=== PATIENT | female | born 1940 | race Caucasian/White ===

== ENCOUNTER 2019-11-01 20:54 | Inpatient (IN) ==
[2019-11-01] MEDS ORDERED: SODIUM CHLORIDE 0.9% 1,000 ML IV STA ×2 (21:25→23:44)
[2019-11-01] MEDS ORDERED: ONDANSETRON 4 MG/2 ML VIAL IV STA (21:36)
[2019-11-01] MEDS ORDERED: NOREPINEPHRINE 8 MG in SODIUM CHLORIDE 0.9% 242 ML IV PRN (21:37)
[2019-11-01 21:54] LABS: Apearance,Urine CLEAR (Clear); Bilirubin,Urine Negative (Negative); Blood, Urine Negative (Negative); Glucose,Urine (UA) Negative (Negative); Ketones,Urine Negative (Negative); Nitrite,Urine Negative (Negative); Protein,Urine Negative; Squamous Epithelial Cell,Urine Occasional /HPF (0-10); Urine Color Yellow (Yellow); Urine Specific Gravity 1.009 (1.001-1.035); Urine Urobilinogen < 2.0 EU/DL (0.2-1.0); WBC,Urine <1 /HPF (0-6)
[2019-11-01 22:02] LABS: Barbiturates Screen,Urine Negative (Negative); Benzodiazepines Screen,Urine Negative (Negative); Cannabinoid Screen,Urine Negative (Negative); Opiate Screen,Urine Positive (Negative); Phencyclidine Screen,Urine Negative (Negative)
[2019-11-01 22:27] LABS: Basophils % 0.2 % (0.0-0.8); Eosinophils # 0.1 10*3/uL (0.0-0.87); Hematocrit 33.5 VOL% (35.7-47.0); Hemoglobin 10.9 GM/DL (12.0-16.0); Immature Granulocytes Absolute 0.13 #; Lymphocytes # 1.1 10*3/uL (1.4-4.0); Lymphocytes % 8.4 % (21.3-54.2); Mean Corpuscular HGB Conc 32.5 GM/DL (32-36); Mean Corpuscular Volume 99.1 FL (87-102); Monocytes % 6.8 % (1.7-12.7); Neutrophils % 82.6 % (38.7-73.9); Platelet Count 213 T/CUMM (130-400); Red Blood Count 3.38 MC/CUMM (3.8-5.5); Red Cell Distribution Width 13.6 % (9.3-17.3); White Blood Count 12.6 T/CUMM (4-12)
[2019-11-01 22:48] LABS: PT Patient Result 67.3 SECS (9.8-11.9)
[2019-11-01 22:58] LABS: Alanine Aminotransferase 14 U/L (13-56); Albumin 3.2 G/DL (3.4-5.0); Alkaline Phosphatase 67 U/L (45-117); Aspartate Amino Transferase 16 U/L (0-37); Blood Urea Nitrogen 43 MG/DL (7-18); Calcium 8.2 MG/DL (8.5-10.1); Estimated Glom Filtration Rate 22 ML/MIN; Ferritin 44.2 ng/ml (8-252); Glucose 130 MG/DL (74-106); Osmolality,Calculated 272.8 MOS/KG (273-304); Thyroid Stimulating Hormone 0.841 uIU/ml (0.358-3.74); Total Protein 6.7 G/DL (6.4-8.3); Troponin I < 0.015 NG/ML (0.00-0.045)
[2019-11-01] MEDS ORDERED: NOREPINEPHRINE 4 MG/4 ML VIAL IV ONE ×2 (23:49→23:50)
[2019-11-02] MEDS ORDERED: ONDANSETRON 4 MG/2 ML VIAL IV PRN (00:08)
[2019-11-02] MEDS ORDERED: ALBUTEROL 2.5 MG/3 ML NEB RESP TX PRN (00:08)
[2019-11-02] MEDS ORDERED: PROMETHAZINE 25 MG/1 ML VIAL IM PRN (00:08)
[2019-11-02] MEDS: LACTATED RINGERS 1,000 ML IV SCH ×3 (01:23→22:30)
[2019-11-02 04:17] LABS: Basophils % 0.4 % (0.0-0.8); Eosinophils # 0.3 10*3/uL (0.0-0.87); Eosinophils % 2.5 % (0.00-10.9); Hematocrit 34.7 VOL% (35.7-47.0); Hemoglobin 11.1 GM/DL (12.0-16.0); Immature Granulocytes Absolute 0.11 #; Lymphocytes # 1.3 10*3/uL (1.4-4.0); Lymphocytes % 12.6 % (21.3-54.2); Mean Platelet Volume 10.1 FL (9.6-12.0); Monocytes % 8.6 % (1.7-12.7); Neutrophils % 74.9 % (38.7-73.9); Platelet Count 196 T/CUMM (130-400); Red Blood Count 3.47 MC/CUMM (3.8-5.5); Red Cell Distribution Width 13.5 % (9.3-17.3); White Blood Count 10.5 T/CUMM (4-12)
[2019-11-02 04:51] LABS: Albumin 2.8 G/DL (3.4-5.0); Bilirubin,Total 1.1 MG/DL (0.2-1.0); Calcium 8.6 MG/DL (8.5-10.1); Osmolality,Calculated 273.4 MOS/KG (273-304)
[2019-11-02 08:04] LABS: INR 3.8; PT Patient Result 38.3 SECS (9.8-11.9)
[2019-11-02] MEDS ORDERED: LACTATED RINGERS 1,000 ML IV ONE (08:46)
[2019-11-02] MEDS: levETIRAcetam 500 MG TABLET PO SCH (20:54)
[2019-11-02] MEDS: FLECAINIDE 50 MG TABLET PO SCH (20:54)
[2019-11-02] MEDS ORDERED: SERTRALINE 50 MG TABLET PO SCH (21:00)
[2019-11-02] MEDS ORDERED: SIMVASTATIN 80 MG TABLET PO SCH (21:00)
[2019-11-03] MEDS ORDERED: LEVOTHYROXINE 88 MCG TABLET PO SCH (06:30)
[2019-11-03 06:31] LABS: INR 2.3; PT Patient Result 23.3 SECS (9.8-11.9)
[2019-11-03] MEDS: FLECAINIDE 50 MG TABLET PO SCH (08:09)
[2019-11-03] MEDS: levETIRAcetam 500 MG TABLET PO SCH (08:09)
[2019-11-03] MEDS: LACTATED RINGERS 1,000 ML IV SCH (08:11)
[2019-11-03 08:39] LABS: Calcium 9.1 MG/DL (8.5-10.1); Osmolality,Calculated 275.7 MOS/KG (273-304)
[2019-11-03] MEDS ORDERED: PANTOPRAZOLE 40 MG TABLET PO SCH (09:00)
[2019-11-03 11:31] VITALS: BP 147/89
[2019-11-03] MEDS ORDERED: WARFARIN 2.5 MG TABLET PO SCH (18:00)
[2019-11-04] MEDS ORDERED: WARFARIN 5 MG TABLET PO SCH (18:00)
== END 2019-11-03 15:57 | DRG 683 ==
LOC: EDUNIT# → EDBD → N.ED 20:54 → N.EDINP 11-02 00:19 → SUATTDRO 11-02 00:19 → N.ICU 11-02 00:46 → N.4E 11-02 17:27
PROVIDERS: ADMIT Internal Medicine; ATTEND Internal Medicine

== ENCOUNTER 2020-06-27 05:38 | Inpatient (IN) ==
[2020-06-27 07:52] LABS: ABG Base Excess 11.1 MMOL/L (-2.5-2.5); ABG HCO3 34.7 MMOL/L (20-26); ABG Oxygen Saturation 90.5 % (95-100); ABG PH 7.315 (7.35-7.45); ABG PO2 71.3 MM HG (80-95); ABG TCO2 37.3 MMOL/L (23-27); Allen Test Positive
[2020-06-27 07:55] LABS: ABG PCO2 78.2 MM HG (35-48)
[2020-06-27] MEDS ORDERED: FUROSEMIDE 20 MG/2 ML VIAL IV ONE (08:04)
[2020-06-27] MEDS ORDERED: ALUMINUM/MAGNES/SIMETH MAX STR 30 ML UDCUP PO PRN (08:05)
[2020-06-27] MEDS ORDERED: ZALEPLON 5 MG CAPSULE PO PRN (08:05)
[2020-06-27] MEDS ORDERED: ACETAMINOPHEN 325 MG TABLET PO PRN (08:05)
[2020-06-27] MEDS ORDERED: MAGNESIUM SULF RIDER 4 GM in PREMIX 1 EACH IV PRN (08:05)
[2020-06-27] MEDS ORDERED: MAGNESIUM SULF RIDER 2 GM in PREMIX 1 EACH IV PRN (08:05)
[2020-06-27] MEDS ORDERED: ONDANSETRON 4 MG/2 ML VIAL IV PRN (08:05)
[2020-06-27] MEDS ORDERED: BISACODYL 5 MG TABLET PO PRN (08:05)
[2020-06-27] MEDS ORDERED: FUROSEMIDE 40 MG/4 ML VIAL ONE (08:10)
[2020-06-27] MEDS ORDERED: FUROSEMIDE 40 MG/4 ML VIAL IV ONE ×2 (08:30→18:41)
[2020-06-27] MEDS ORDERED: ENOXAPARIN 40 MG/0.4 ML SYRINGE SUBCUT SCH (08:30)
[2020-06-27] MEDS: SODIUM CHLORIDE 0.9% 1,000 ML IV SCH (08:47)
[2020-06-27 08:49] LABS: Bilirubin,Urine Negative (Negative); Blood, Urine Negative (Negative); Glucose,Urine (UA) Negative (Negative); Hyaline Casts,Urine 1 /LPF (0-3); Ketones,Urine Negative (Negative); Mucus,Urine Occasional /LPF (Occasional); Nitrite,Urine Negative (Negative); Protein,Urine 100 MG/DL; RBC,Urine 3 /HPF (0-4); Urine Appearance CLEAR (Clear); Urine Color Yellow (Yellow); Urine Specific Gravity 1.019 (1.001-1.035); Urine Urobilinogen < 2.0 EU/DL (0.2-1.0); WBC,Urine 1 /HPF (0-6)
[2020-06-27] MEDS ORDERED: PANTOPRAZOLE 40 MG TABLET PO SCH (09:00)
[2020-06-27 09:51] LABS: Basophils % 0.3 % (0.0-0.8); Eosinophils % 0.3 % (0.00-10.9); Hematocrit 29.6 VOL% (35.7-47.0); Hemoglobin 8.7 GM/DL (12.0-16.0); Immature Granulocytes % 0.5 %; Immature Granulocytes Absolute 0.03 #; Lymphocytes # 0.5 10*3/uL (1.4-4.0); Lymphocytes % 7.5 % (21.3-54.2); Mean Corpuscular HGB Conc 29.4 GM/DL (32-36); Mean Corpuscular Volume 89.7 FL (87-102); Mean Platelet Volume 9.3 FL (9.6-12.0); Monocytes % 7.4 % (1.7-12.7); Platelet Count 233 T/CUMM (130-400); Red Cell Distribution Width 17.9 % (9.3-17.3)
[2020-06-27 10:08] LABS: INR 4.8; PT Patient Result 47.4 SECS (9.8-11.9)
[2020-06-27 10:14] LABS: Alanine Aminotransferase 19 U/L (13-56); Albumin 3.4 G/DL (3.4-5.0); Alkaline Phosphatase 89 U/L (45-117); Aspartate Amino Transferase 10 U/L (0-37); Bilirubin,Total < 0.39 MG/DL (0.2-1.0); Blood Urea Nitrogen 23 MG/DL (7-18); Estimated Glom Filtration Rate 92 ML/MIN; Glucose 111 MG/DL (74-106); Total Protein 6.7 G/DL (5.0-7.5)
[2020-06-27 10:18] LABS: Potassium 4.7 MMOL/L (3.5-5.1)
[2020-06-27 10:22] LABS: Carbon Dioxide 39 MMOL/L (21-32)
[2020-06-27 10:27] LABS: Osmolality,Calculated 262.9 MOS/KG (273-304); Sodium 129 MMOL/L (136-145)
[2020-06-27] MEDS ORDERED: COLCHICINE 0.6 MG CAPSULE PO PRN (14:47)
[2020-06-27] MEDS: amLODIPine 5 MG TABLET PO SCH (15:07)
[2020-06-27] MEDS: LEVOTHYROXINE 88 MCG TABLET PO SCH (15:07)
[2020-06-27] MEDS: ASCORBIC ACID 500 MG TABLET PO SCH (15:07)
[2020-06-27] MEDS: FLECAINIDE 100 MG TABLET PO SCH ×2 (15:07→20:32)
[2020-06-27] MEDS: PANTOPRAZOLE 40 MG TABLET PO SCH (15:07)
[2020-06-27] MEDS ORDERED: WARFARIN 5 MG TABLET PO SCH (18:00)
[2020-06-27] MEDS: ALBUTEROL/IPRATROPIUM 3 ML NEB RESP TX SCH (19:05)
[2020-06-27] MEDS: levETIRAcetam 500 MG TABLET PO SCH (20:32)
[2020-06-27] MEDS: ATORVASTATIN 20 MG TABLET PO SCH (20:32)
[2020-06-27] MEDS: OXcarbazepine 300 MG TABLET PO SCH (20:33)
[2020-06-27] MEDS: traZODone 50 MG TABLET PO SCH (20:33)
[2020-06-28] MEDS: ALBUTEROL/IPRATROPIUM 3 ML NEB RESP TX SCH ×4 (00:53→19:33)
[2020-06-28 06:57] LABS: Basophils % 0.4 % (0.0-0.8); Eosinophils # 0.1 10*3/uL (0.0-0.87); Eosinophils % 1.7 % (0.00-10.9); Hematocrit 27.9 VOL% (35.7-47.0); Hemoglobin 8.3 GM/DL (12.0-16.0); Immature Granulocytes % 0.4 %; Immature Granulocytes Absolute 0.02 #; Lymphocytes # 0.6 10*3/uL (1.4-4.0); Lymphocytes % 11.8 % (21.3-54.2); Mean Corpuscular HGB Conc 29.7 GM/DL (32-36); Mean Corpuscular Volume 86.4 FL (87-102); Monocytes % 11.8 % (1.7-12.7); Neutrophils % 73.9 % (38.7-73.9); Platelet Count 235 T/CUMM (130-400); Red Blood Count 3.23 MC/CUMM (3.8-5.5); Red Cell Distribution Width 17.9 % (9.3-17.3); White Blood Count 4.7 T/CUMM (4-12)
[2020-06-28 07:04] LABS: INR 3.6; PT Patient Result 36.2 SECS (9.8-11.9)
[2020-06-28 07:29] LABS: Calcium 8.6 MG/DL (8.5-10.1); Osmolality,Calculated 267.4 MOS/KG (273-304); Potassium 4.1 MMOL/L (3.5-5.1); Risk Ratio 2.11; VLDL CHOLESTEROL 14.4 MG/DL
[2020-06-28] MEDS: amLODIPine 5 MG TABLET PO SCH (11:33)
[2020-06-28] MEDS: OXcarbazepine 300 MG TABLET PO SCH ×2 (11:35→20:17)
[2020-06-28] MEDS: levETIRAcetam 500 MG TABLET PO SCH ×2 (11:37→20:17)
[2020-06-28] MEDS: PANTOPRAZOLE 40 MG TABLET PO SCH (11:37)
[2020-06-28] MEDS: LEVOTHYROXINE 88 MCG TABLET PO SCH (11:37)
[2020-06-28] MEDS: FLECAINIDE 100 MG TABLET PO SCH ×2 (11:38→20:16)
[2020-06-28] MEDS: CHOLECALCIFEROL 1,000 UNIT TABLET PO SCH (11:39)
[2020-06-28] MEDS: ZINC GLUCONATE 50 MG TABLET PO SCH (11:39)
[2020-06-28] MEDS: lisinopriL 20 MG TABLET PO SCH (11:40)
[2020-06-28] MEDS: MAGNESIUM OXIDE 400 MG TABLET PO SCH (11:41)
[2020-06-28] MEDS: ASCORBIC ACID 500 MG TABLET PO SCH ×2 (11:42→20:16)
[2020-06-28] MEDS: FUROSEMIDE 40 MG TABLET PO SCH (11:42)
[2020-06-28] MEDS: SODIUM CHLORIDE 0.9% 1,000 ML IV SCH (15:15)
[2020-06-28] MEDS: traZODone 50 MG TABLET PO SCH (20:17)
[2020-06-28] MEDS: ATORVASTATIN 20 MG TABLET PO SCH (20:17)
[2020-06-29] MEDS: ALBUTEROL/IPRATROPIUM 3 ML NEB RESP TX SCH ×3 (00:35→12:50)
[2020-06-29 05:16] LABS: Basophils % 0.5 % (0.0-0.8); Eosinophils # 0.1 10*3/uL (0.0-0.87); Hematocrit 27.2 VOL% (35.7-47.0); Hemoglobin 8.3 GM/DL (12.0-16.0); Immature Granulocytes % 0.7 %; Immature Granulocytes Absolute 0.04 #; Lymphocytes # 0.6 10*3/uL (1.4-4.0); Lymphocytes % 9.4 % (21.3-54.2); Mean Corpuscular HGB Conc 30.5 GM/DL (32-36); Mean Platelet Volume 9.5 FL (9.6-12.0); Monocytes % 9.2 % (1.7-12.7); Neutrophils % 78.2 % (38.7-73.9); Platelet Count 209 T/CUMM (130-400); Red Cell Distribution Width 17.5 % (9.3-17.3); White Blood Count 6.1 T/CUMM (4-12)
[2020-06-29 05:25] LABS: INR 2.2; PT Patient Result 22.9 SECS (9.8-11.9)
[2020-06-29 05:44] LABS: Calcium 8.6 MG/DL (8.5-10.1); Osmolality,Calculated 262.7 MOS/KG (273-304); Potassium 3.8 MMOL/L (3.5-5.1)
[2020-06-29] MEDS: lisinopriL 20 MG TABLET PO SCH (09:07)
[2020-06-29] MEDS: levETIRAcetam 500 MG TABLET PO SCH ×2 (09:08→20:44)
[2020-06-29] MEDS: FLECAINIDE 100 MG TABLET PO SCH ×2 (09:08→20:45)
[2020-06-29] MEDS: LEVOTHYROXINE 88 MCG TABLET PO SCH (09:08)
[2020-06-29] MEDS: CHOLECALCIFEROL 1,000 UNIT TABLET PO SCH (09:08)
[2020-06-29] MEDS: PANTOPRAZOLE 40 MG TABLET PO SCH (09:09)
[2020-06-29] MEDS: amLODIPine 5 MG TABLET PO SCH (09:09)
[2020-06-29] MEDS: ZINC GLUCONATE 50 MG TABLET PO SCH (09:09)
[2020-06-29] MEDS: MAGNESIUM OXIDE 400 MG TABLET PO SCH (09:10)
[2020-06-29] MEDS: OXcarbazepine 300 MG TABLET PO SCH ×2 (09:10→20:45)
[2020-06-29] MEDS: ASCORBIC ACID 500 MG TABLET PO SCH ×2 (09:11→20:45)
[2020-06-29] MEDS: FUROSEMIDE 40 MG TABLET PO SCH (09:11)
[2020-06-29] MEDS: SODIUM CHLORIDE 0.9% 1,000 ML IV SCH (17:12)
[2020-06-29] MEDS: BUDESONIDE 0.5 MG/2 ML NEB RESP TX SCH (19:17)
[2020-06-29] MEDS: IPRATROPIUM 500 MCG/2.5 ML NEB RESP TX SCH (19:17)
[2020-06-29] MEDS: traZODone 50 MG TABLET PO SCH (20:44)
[2020-06-29] MEDS: ATORVASTATIN 20 MG TABLET PO SCH (20:45)
[2020-06-30] MEDS: IPRATROPIUM 500 MCG/2.5 ML NEB RESP TX SCH ×4 (00:13→19:02)
[2020-06-30 03:57] LABS: ABG Base Excess 14.8 MMOL/L (-2.5-2.5); ABG HCO3 38.6 MMOL/L (20-26); ABG Oxygen Saturation 93.8 % (95-100); ABG PCO2 59.9 MM HG (35-48); ABG PH 7.445 (7.35-7.45); ABG TCO2 38.3 MMOL/L (23-27); Allen Test Positive
[2020-06-30 05:27] LABS: Basophils % 0.2 % (0.0-0.8); Eosinophils # 0.1 10*3/uL (0.0-0.87); Eosinophils % 2.3 % (0.00-10.9); Hematocrit 26.2 VOL% (35.7-47.0); Hemoglobin 8.1 GM/DL (12.0-16.0); Immature Granulocytes % 0.7 %; Immature Granulocytes Absolute 0.04 #; Lymphocytes # 0.6 10*3/uL (1.4-4.0); Lymphocytes % 9.5 % (21.3-54.2); Mean Corpuscular HGB Conc 30.9 GM/DL (32-36); Mean Corpuscular Volume 83.7 FL (87-102); Mean Platelet Volume 9.7 FL (9.6-12.0); Monocytes % 10.9 % (1.7-12.7); Neutrophils % 76.4 % (38.7-73.9); Platelet Count 203 T/CUMM (130-400); Red Blood Count 3.13 MC/CUMM (3.8-5.5); Red Cell Distribution Width 17.8 % (9.3-17.3); White Blood Count 5.8 T/CUMM (4-12)
[2020-06-30 05:31] LABS: INR 1.4; PT Patient Result 14.7 SECS (9.8-11.9)
[2020-06-30 05:38] LABS: Calcium 8.6 MG/DL (8.5-10.1); Osmolality,Calculated 257.1 MOS/KG (273-304); Potassium 3.4 MMOL/L (3.5-5.1)
[2020-06-30] MEDS: BUDESONIDE 0.5 MG/2 ML NEB RESP TX SCH ×2 (07:05→19:02)
[2020-06-30] MEDS: lisinopriL 20 MG TABLET PO SCH (09:19)
[2020-06-30] MEDS: PANTOPRAZOLE 40 MG TABLET PO SCH (09:19)
[2020-06-30] MEDS: LEVOTHYROXINE 88 MCG TABLET PO SCH (09:20)
[2020-06-30] MEDS: FLECAINIDE 100 MG TABLET PO SCH ×2 (09:20→20:39)
[2020-06-30] MEDS: MAGNESIUM OXIDE 400 MG TABLET PO SCH (09:20)
[2020-06-30] MEDS: ZINC GLUCONATE 50 MG TABLET PO SCH (09:20)
[2020-06-30] MEDS: ASCORBIC ACID 500 MG TABLET PO SCH ×2 (09:20→20:40)
[2020-06-30] MEDS: FUROSEMIDE 40 MG TABLET PO SCH (09:20)
[2020-06-30] MEDS: levETIRAcetam 500 MG TABLET PO SCH ×2 (09:21→20:42)
[2020-06-30] MEDS: OXcarbazepine 300 MG TABLET PO SCH ×2 (09:21→20:40)
[2020-06-30] MEDS: amLODIPine 5 MG TABLET PO SCH (09:22)
[2020-06-30] MEDS: CHOLECALCIFEROL 1,000 UNIT TABLET PO SCH (09:22)
[2020-06-30] MEDS: SODIUM CHLORIDE 0.9% 1,000 ML IV SCH (09:32)
[2020-06-30] MEDS: POTASSIUM CHLORIDE 20 MEQ TABLET PO PRN ×3 (09:44→13:43)
[2020-06-30] MEDS: traZODone 50 MG TABLET PO SCH (20:40)
[2020-06-30] MEDS: ATORVASTATIN 20 MG TABLET PO SCH (20:40)
[2020-07-01] MEDS: IPRATROPIUM 500 MCG/2.5 ML NEB RESP TX SCH ×4 (00:47→18:21)
[2020-07-01 06:32] LABS: Basophils % 0.4 % (0.0-0.8); Eosinophils # 0.2 10*3/uL (0.0-0.87); Eosinophils % 4.8 % (0.00-10.9); Hematocrit 26.7 VOL% (35.7-47.0); Hemoglobin 8.1 GM/DL (12.0-16.0); Immature Granulocytes % 0.7 %; Immature Granulocytes Absolute 0.03 #; Lymphocytes # 0.5 10*3/uL (1.4-4.0); Lymphocytes % 11.4 % (21.3-54.2); Mean Corpuscular HGB Conc 30.3 GM/DL (32-36); Mean Corpuscular Volume 86.7 FL (87-102); Mean Platelet Volume 10.3 FL (9.6-12.0); Neutrophils % 71.7 % (38.7-73.9); Platelet Count 212 T/CUMM (130-400); Red Blood Count 3.08 MC/CUMM (3.8-5.5); Red Cell Distribution Width 18.4 % (9.3-17.3); White Blood Count 4.6 T/CUMM (4-12)
[2020-07-01 06:41] LABS: INR 1.1; PT Patient Result 11.4 SECS (9.8-11.9)
[2020-07-01 06:52] LABS: Calcium 8.9 MG/DL (8.5-10.1); Osmolality,Calculated 262.7 MOS/KG (273-304); Potassium 3.7 MMOL/L (3.5-5.1)
[2020-07-01] MEDS: SODIUM CHLORIDE 0.9% 1,000 ML IV SCH (07:00)
[2020-07-01] MEDS ORDERED: LIDOCAINE 2% 5 ML VIAL ONE (07:25)
[2020-07-01] MEDS ORDERED: propofoL 200 MG/20 ML VIAL IV ONE (07:25)
[2020-07-01] MEDS ORDERED: ENOXAPARIN 40 MG/0.4 ML SYRINGE SUBCUT ONE (07:30)
[2020-07-01] MEDS: amLODIPine 5 MG TABLET PO SCH (08:43)
[2020-07-01] MEDS: FUROSEMIDE 40 MG TABLET PO SCH (08:43)
[2020-07-01] MEDS: lisinopriL 20 MG TABLET PO SCH (08:43)
[2020-07-01] MEDS: levETIRAcetam 500 MG TABLET PO SCH ×2 (09:47→20:32)
[2020-07-01] MEDS: LEVOTHYROXINE 88 MCG TABLET PO SCH (09:47)
[2020-07-01] MEDS: CHOLECALCIFEROL 1,000 UNIT TABLET PO SCH (09:48)
[2020-07-01] MEDS: MAGNESIUM OXIDE 400 MG TABLET PO SCH (09:48)
[2020-07-01] MEDS: ZINC GLUCONATE 50 MG TABLET PO SCH (09:48)
[2020-07-01] MEDS: FLECAINIDE 100 MG TABLET PO SCH ×3 (09:49→23:18)
[2020-07-01] MEDS: OXcarbazepine 300 MG TABLET PO SCH ×2 (09:49→20:31)
[2020-07-01] MEDS: ASCORBIC ACID 500 MG TABLET PO SCH ×2 (09:49→20:32)
[2020-07-01] MEDS: PANTOPRAZOLE 40 MG TABLET PO SCH (09:49)
[2020-07-01] MEDS: BUDESONIDE 0.5 MG/2 ML NEB RESP TX SCH ×2 (09:57→18:21)
[2020-07-01] MEDS ORDERED: VANCOMYCIN 500 MG VIAL IRRIG ONE (13:46)
[2020-07-01] MEDS ORDERED: VANCOMYCIN INJ 1,000 MG in SODIUM CHLORIDE 0.9% 250 ML IV ONE (13:46)
[2020-07-01] MEDS ORDERED: WARFARIN 7.5 MG TABLET PO SCH (18:00)
[2020-07-01] MEDS: ATORVASTATIN 20 MG TABLET PO SCH (20:31)
[2020-07-01] MEDS: traZODone 50 MG TABLET PO SCH (20:32)
[2020-07-02] MEDS: IPRATROPIUM 500 MCG/2.5 ML NEB RESP TX SCH ×4 (00:55→18:41)
[2020-07-02] MEDS ORDERED: VANCOMYCIN INJ 1,000 MG in SODIUM CHLORIDE 0.9% 250 ML IV ONE (06:00)
[2020-07-02 06:18] LABS: Basophils % 0.1 % (0.0-0.8); Eosinophils # 0.2 10*3/uL (0.0-0.87); Eosinophils % 2.7 % (0.00-10.9); Hematocrit 25.8 VOL% (35.7-47.0); Hemoglobin 7.9 GM/DL (12.0-16.0); Immature Granulocytes % 0.7 %; Immature Granulocytes Absolute 0.05 #; Lymphocytes # 0.7 10*3/uL (1.4-4.0); Lymphocytes % 9.7 % (21.3-54.2); Mean Corpuscular HGB Conc 30.6 GM/DL (32-36); Mean Corpuscular Volume 84.6 FL (87-102); Mean Platelet Volume 10.2 FL (9.6-12.0); Monocytes % 9.1 % (1.7-12.7); Neutrophils % 77.7 % (38.7-73.9); Platelet Count 209 T/CUMM (130-400); Red Blood Count 3.05 MC/CUMM (3.8-5.5); Red Cell Distribution Width 18.1 % (9.3-17.3); White Blood Count 6.7 T/CUMM (4-12)
[2020-07-02 06:25] LABS: PT Patient Result 10.6 SECS (9.8-11.9)
[2020-07-02 06:42] LABS: Calcium 8.9 MG/DL (8.5-10.1); Osmolality,Calculated 260.1 MOS/KG (273-304); Potassium 4.1 MMOL/L (3.5-5.1)
[2020-07-02] MEDS ORDERED: DIAZEPAM 5 MG TABLET PO ONE (07:00)
[2020-07-02] MEDS ORDERED: diphenhydrAMINE CAP 50 MG CAPSULE PO ONE (07:00)
[2020-07-02] MEDS ORDERED: VANCOMYCIN 500 MG VIAL ONE ×3 (07:18→08:59)
[2020-07-02] MEDS ORDERED: LIDOCAINE 1% 20 ML VIAL ONE ×2 (07:39→09:15)
[2020-07-02] MEDS ORDERED: MIDAZOLAM 2 MG/2 ML VIAL ONE (07:54)
[2020-07-02] MEDS ORDERED: fentaNYL 100 MCG/2 ML VIAL ONE (07:55)
[2020-07-02] MEDS: BUDESONIDE 0.5 MG/2 ML NEB RESP TX SCH ×2 (08:05→18:41)
[2020-07-02] MEDS: SODIUM CHLORIDE 0.9% 1,000 ML IV SCH (08:09)
[2020-07-02] MEDS ORDERED: TISSUE ADHESIVE 1 EACH APPLICATOR TOP ONE ×2 (08:16→08:59)
[2020-07-02] MEDS ORDERED: PROMETHAZINE 25 MG/1 ML VIAL ONE (09:12)
[2020-07-02] MEDS: FLECAINIDE 100 MG TABLET PO SCH ×2 (10:58→20:13)
[2020-07-02 11:24] LABS: ABG Base Excess 8.9 MMOL/L (-2.5-2.5); ABG HCO3 32.6 MMOL/L (20-26); ABG Oxygen Saturation 95.4 % (95-100); ABG PCO2 66.8 MM HG (35-48); ABG PH 7.345 (7.35-7.45); ABG PO2 88.2 MM HG (80-95)
[2020-07-02] MEDS ORDERED: SODIUM CHLORIDE 0.9% 1,000 ML IV PRN (14:38)
[2020-07-02] MEDS: lisinopriL 20 MG TABLET PO SCH (15:20)
[2020-07-02] MEDS: FUROSEMIDE 40 MG TABLET PO SCH (15:20)
[2020-07-02] MEDS: MAGNESIUM OXIDE 400 MG TABLET PO SCH (15:20)
[2020-07-02] MEDS: amLODIPine 5 MG TABLET PO SCH (15:20)
[2020-07-02] MEDS: LEVOTHYROXINE 88 MCG TABLET PO SCH (15:21)
[2020-07-02] MEDS: OXcarbazepine 300 MG TABLET PO SCH ×2 (15:21→18:29)
[2020-07-02] MEDS: levETIRAcetam 500 MG TABLET PO SCH ×2 (15:21→18:28)
[2020-07-02] MEDS: ASCORBIC ACID 500 MG TABLET PO SCH ×2 (15:21→20:13)
[2020-07-02] MEDS: CHOLECALCIFEROL 1,000 UNIT TABLET PO SCH (15:21)
[2020-07-02] MEDS: PANTOPRAZOLE 40 MG TABLET PO SCH ×2 (15:21→18:29)
[2020-07-02] MEDS: ZINC GLUCONATE 50 MG TABLET PO SCH (15:21)
[2020-07-02] MEDS: WARFARIN 5 MG TABLET PO SCH (18:29)
[2020-07-02] MEDS: traZODone 50 MG TABLET PO SCH (20:13)
[2020-07-02] MEDS: ATORVASTATIN 20 MG TABLET PO SCH (20:13)
[2020-07-03] MEDS: IPRATROPIUM 500 MCG/2.5 ML NEB RESP TX SCH ×4 (00:52→19:25)
[2020-07-03] MEDS: levETIRAcetam 500 MG TABLET PO SCH ×3 (01:10→20:47)
[2020-07-03] MEDS: OXcarbazepine 300 MG TABLET PO SCH ×3 (01:10→20:52)
[2020-07-03 05:56] LABS: Basophils % 0.5 % (0.0-0.8); Eosinophils # 0.2 10*3/uL (0.0-0.87); Eosinophils % 4.2 % (0.00-10.9); Hematocrit 34.6 VOL% (35.7-47.0); Hemoglobin 10.2 GM/DL (12.0-16.0); Immature Granulocytes % 0.7 %; Immature Granulocytes Absolute 0.04 #; Lymphocytes # 0.5 10*3/uL (1.4-4.0); Lymphocytes % 8.2 % (21.3-54.2); Mean Corpuscular HGB Conc 29.5 GM/DL (32-36); Mean Platelet Volume 9.6 FL (9.6-12.0); Monocytes % 9.6 % (1.7-12.7); Neutrophils % 76.8 % (38.7-73.9); Platelet Count 168 T/CUMM (130-400); Red Blood Count 3.93 MC/CUMM (3.8-5.5); Red Cell Distribution Width 17.3 % (9.3-17.3); White Blood Count 5.7 T/CUMM (4-12)
[2020-07-03 06:10] LABS: INR 1.1; PT Patient Result 11.4 SECS (9.8-11.9)
[2020-07-03 06:39] LABS: Albumin 2.8 G/DL (3.4-5.0); Bilirubin,Total 0.4 MG/DL (0.2-1.0); Osmolality,Calculated 258.8 MOS/KG (273-304); Potassium 4.4 MMOL/L (3.5-5.1); Total Protein 6.3 G/DL (5.0-7.5)
[2020-07-03 06:56] LABS: Band Neutrophils 1 % (0-10); Eosinophils 2 % (0-10); Lymphocytes 9 % (20-55); Segmented Neutrophils 83 % (50-85); Total Cells Counted 100
[2020-07-03 06:57] LABS: Hypochromasia 1+; Microcytosis 1+; Ovalocytes Few; Platelet Estimate Adequate
[2020-07-03] MEDS: BUDESONIDE 0.5 MG/2 ML NEB RESP TX SCH ×2 (07:10→19:25)
[2020-07-03] MEDS: PANTOPRAZOLE 40 MG TABLET PO SCH (09:11)
[2020-07-03] MEDS: lisinopriL 20 MG TABLET PO SCH (09:12)
[2020-07-03] MEDS: MAGNESIUM OXIDE 400 MG TABLET PO SCH (09:13)
[2020-07-03] MEDS: amLODIPine 5 MG TABLET PO SCH (09:13)
[2020-07-03] MEDS: FLECAINIDE 100 MG TABLET PO SCH ×2 (09:13→20:46)
[2020-07-03] MEDS: ZINC GLUCONATE 50 MG TABLET PO SCH (09:13)
[2020-07-03] MEDS: CHOLECALCIFEROL 1,000 UNIT TABLET PO SCH (09:13)
[2020-07-03] MEDS: LEVOTHYROXINE 88 MCG TABLET PO SCH (09:13)
[2020-07-03] MEDS: FUROSEMIDE 40 MG TABLET PO SCH (09:13)
[2020-07-03] MEDS: ASCORBIC ACID 500 MG TABLET PO SCH ×2 (09:13→20:47)
[2020-07-03] MEDS: POTASSIUM CHLORIDE 10 MEQ TABLET PO PRN (09:14)
[2020-07-03] MEDS: HEPARIN DRIP 25,000 UNITS/500 ML PREMIX IV SCH (15:47)
[2020-07-03] MEDS: traZODone 50 MG TABLET PO SCH (20:47)
[2020-07-03] MEDS: ATORVASTATIN 20 MG TABLET PO SCH (20:52)
[2020-07-04] MEDS: IPRATROPIUM 500 MCG/2.5 ML NEB RESP TX SCH ×4 (00:57→20:05)
[2020-07-04] MEDS ORDERED: HEPARIN 5,000 UNIT/1 ML VIAL IV ONE ×2 (02:02→18:10)
[2020-07-04] MEDS: BUDESONIDE 0.5 MG/2 ML NEB RESP TX SCH ×2 (07:03→20:05)
[2020-07-04] MEDS: PANTOPRAZOLE 40 MG TABLET PO SCH (10:02)
[2020-07-04] MEDS: CHOLECALCIFEROL 1,000 UNIT TABLET PO SCH (10:02)
[2020-07-04] MEDS: MAGNESIUM OXIDE 400 MG TABLET PO SCH (10:03)
[2020-07-04] MEDS: FLECAINIDE 100 MG TABLET PO SCH ×2 (10:03→21:06)
[2020-07-04] MEDS: lisinopriL 20 MG TABLET PO SCH (10:03)
[2020-07-04] MEDS: levETIRAcetam 500 MG TABLET PO SCH ×2 (10:03→21:05)
[2020-07-04] MEDS: OXcarbazepine 300 MG TABLET PO SCH ×2 (10:03→21:08)
[2020-07-04] MEDS: FUROSEMIDE 40 MG TABLET PO SCH (10:04)
[2020-07-04] MEDS: ZINC GLUCONATE 50 MG TABLET PO SCH (10:04)
[2020-07-04] MEDS: POTASSIUM CHLORIDE 10 MEQ TABLET PO PRN (10:04)
[2020-07-04] MEDS: ASCORBIC ACID 500 MG TABLET PO SCH ×2 (10:04→21:08)
[2020-07-04] MEDS: LEVOTHYROXINE 88 MCG TABLET PO SCH (10:04)
[2020-07-04] MEDS: amLODIPine 5 MG TABLET PO SCH (10:04)
[2020-07-04 13:34] LABS: Total Protein 5.8 G/DL (5.0-7.5)
[2020-07-04] MEDS: HEPARIN DRIP 25,000 UNITS/500 ML PREMIX IV SCH (16:18)
[2020-07-04 16:38] LABS: Glucose,Pleural Fluid 122 MG/DL; LDH,Pleural Fluid 108 U/L; Total Protein,Pleural Fluid 2.7 G/DL
[2020-07-04 16:52] LABS: Lymphocytes,Pleural Fluid 94 %; Monocytes,Pleural Fluid 2 %; Neutrophils,Pleural Fluid 4 %
[2020-07-04 16:53] LABS: RBC,Pleural Fluid 18594 T/CUMM
[2020-07-04] MEDS: WARFARIN 5 MG TABLET PO SCH (17:17)
[2020-07-04] MEDS: traZODone 50 MG TABLET PO SCH (21:06)
[2020-07-04] MEDS: ATORVASTATIN 20 MG TABLET PO SCH (21:08)
[2020-07-05] MEDS: IPRATROPIUM 500 MCG/2.5 ML NEB RESP TX SCH ×2 (01:30→07:30)
[2020-07-05 06:18] LABS: INR 1.1; PT Patient Result 11.4 SECS (9.8-11.9)
[2020-07-05 07:22] LABS: Basophils % 0.3 % (0.0-0.8); Eosinophils # 0.3 10*3/uL (0.0-0.87); Eosinophils % 3.6 % (0.00-10.9); Hematocrit 34.3 VOL% (35.7-47.0); Hemoglobin 10.2 GM/DL (12.0-16.0); Immature Granulocytes % 0.7 %; Immature Granulocytes Absolute 0.05 #; Lymphocytes # 0.7 10*3/uL (1.4-4.0); Lymphocytes % 8.9 % (21.3-54.2); Mean Corpuscular HGB Conc 29.7 GM/DL (32-36); Mean Corpuscular Volume 87.9 FL (87-102); Mean Platelet Volume 10.8 FL (9.6-12.0); Monocytes % 8.8 % (1.7-12.7); Neutrophils % 77.7 % (38.7-73.9); Platelet Count 214 T/CUMM (130-400); Red Cell Distribution Width 17.5 % (9.3-17.3); White Blood Count 7.3 T/CUMM (4-12)
[2020-07-05] MEDS ORDERED: WARFARIN 5 MG TABLET PO ONE (07:29)
[2020-07-05] MEDS: BUDESONIDE 0.5 MG/2 ML NEB RESP TX SCH (07:30)
[2020-07-05 07:50] LABS: Osmolality,Calculated 262.5 MOS/KG (273-304); Potassium 3.9 MMOL/L (3.5-5.1)
[2020-07-05] MEDS: OXcarbazepine 300 MG TABLET PO SCH (08:42)
[2020-07-05] MEDS: PANTOPRAZOLE 40 MG TABLET PO SCH (08:42)
[2020-07-05] MEDS: CHOLECALCIFEROL 1,000 UNIT TABLET PO SCH (08:42)
[2020-07-05] MEDS: MAGNESIUM OXIDE 400 MG TABLET PO SCH (08:44)
[2020-07-05] MEDS: levETIRAcetam 500 MG TABLET PO SCH (08:44)
[2020-07-05] MEDS: ASCORBIC ACID 500 MG TABLET PO SCH (08:44)
[2020-07-05] MEDS: LEVOTHYROXINE 88 MCG TABLET PO SCH (08:44)
[2020-07-05] MEDS: FUROSEMIDE 40 MG TABLET PO SCH (08:44)
[2020-07-05] MEDS: ZINC GLUCONATE 50 MG TABLET PO SCH (08:44)
[2020-07-05] MEDS: FLECAINIDE 100 MG TABLET PO SCH (08:44)
[2020-07-05] MEDS: amLODIPine 5 MG TABLET PO SCH (08:45)
[2020-07-05] MEDS: lisinopriL 20 MG TABLET PO SCH (08:47)
[2020-07-05 13:02] VITALS: BP 115/62
[2020-07-06 13:14] LABS: CEA, Pleural Fluid 0.7 ng/mL
[2020-07-08] MEDS ORDERED: DEXAMETHASONE 4 MG/1 ML VIAL IM ONE ×2 (09:00)
[2020-07-08] MEDS ORDERED: WARFARIN 7.5 MG TABLET PO SCH (18:00)
[2020-08-08] MEDS ORDERED: DEXAMETHASONE 4 MG/1 ML VIAL IM ONE (09:00)
== END 2020-07-05 14:57 | disposition home health service (06) | DRG 242 ==
LOC: N.CL 05:38 → N.TELES 14:09
PROVIDERS: ADMIT Internal Medicine Cardiovascular Disease; ATTEND Internal Medicine Cardiovascular Disease